=== PATIENT | female | born 1995 | race American Indian/Alaskan Native ===

== ENCOUNTER 2019-09-03 12:13 | Emergency (ER) | payer SELFPAY ==
[2019-09-03] MEDS ORDERED: Ondansetron 4 MG Tab.DIS PO ONE (12:36)
--- NOTE | 2019-09-03 12:41 | EDM.PDOC ---
ED HPI GENERAL MEDICAL PROBLEM - General Chief Complaint: General Stated Complaint: LEFT SIDE OF NECK SWOLLEN Time Seen by Provider: 09/03/19 12:26 Source of Information: Reports: Patient History Limitations: Reports: No Limitations - History of Present Illness INITIAL COMMENTS - FREE TEXT/NARRATIVE: HISTORY AND PHYSICAL: History of present illness: Patient is a 23-year-old female who presents to the emergency room with complaints of an enlarged and tender lymph node on her right neck. She states that she had an immunization on and since has felt mildly ill. She noticed the enlarged lymph node yesterday and states "I keep rubbing it and messing around, its starting to hurt". She states she gets nauseated when she "messes with it". She denies any skin redness, soft tissue swelling or airway involvement. Patient denies any fever, chills, headache, change in vision, syncope or near syncope. Denies any chest pain, back pain, shortness of breath or cough. Denies any GI or symptoms. patient has been eating and drinking appropriately. Review of systems: As per history of present illness and below otherwise all systems reviewed and negative. Past medical history: As per history of present illness and as reviewed below otherwise noncontributory. Surgical history: As per history of present illness and as reviewed below otherwise noncontributory. Social history: See social history for further information Family history: As per history of present illness and as reviewed below otherwise noncontributory. Physical exam: General: Well-developed and well-nourished 23-year-old female. Alert and oriented. Nontoxic-appearing and in no acute distress. HEENT: Atraumatic, normocephalic, pupils equal and reactive bilaterally, negative for conjunctival pallor or scleral icterus, mucous membranes moist, TMs normal bilaterally, throat clear, 1 enlarged lymph node along the right cervical chain (mid neck) boggy, neck supple, trachea midline. No drooling or trismus noted. No meningeal signs. No hot potato voice noted. Lungs: Clear to auscultation, breath sounds equal bilaterally, chest nontender. Heart: S1S2, regular rate and rhythm without overt murmur Abdomen: Soft, nondistended, nontender. Negative for masses or hepatosplenomegaly. Negative for costovertebral tenderness. Skin: Intact, warm, dry. No lesions or rashes noted. Extremities: Atraumatic, moves all extremities per self without difficulty or deficits, negative for cords or calf pain. Neurovascular unremarkable. Neuro: Awake, alert, oriented. Cranial nerves II through XII unremarkable. Cerebellum unremarkable. Motor and sensory unremarkable throughout. Exam nonfocal. Notes: One enlarged lymph node is noted. We discussed the likely alvarez of this being her body responding to illness or her recent immunization; she needs to monitor the site. Follow up with PCP in the next week. Supportive care measures were reviewed and discussed. Voices understanding and is agreeable to plan of care. Denies any further questions or concerns at this time. Diagnostics: None Therapeutics: Zofran Impression: Reactive lymph node Plan: 1. Continue to monitor the site, look for the signs and symptoms that we discussed. If the site does not improve you may need to have the site biopsied. 2. Alternate Tylenol and Ibuprofen for pain management. 3. Increase your oral fluids. Zofran as needed for nausea. 4. Follow up with your primary care provider. Return to the ED as needed and as discussed. Definitive disposition and diagnosis as appropriate pending reevaluation and review of above. right neck Pain Score (Numeric/FACES): 9 - Related Data Allergies Allergy/AdvReac Type Severity Reaction Status Date / Time No Known Allergies Allergy Verified 09/03/19 12:26 Home Meds: Home Meds Ondansetron [Zofran ODT] 4 mg PO Q6H PRN #6 tab.dis 09/03/19 [Rx] cephALEXin [Keflex] 500 mg PO BID 5 Days #10 cap 09/03/19 [Rx] Past Medical History - Past Health History Medical/Surgical History: Denies Medical/Surgical History Respiratory History: Reports: Asthma TOY STUFFER History: Reports: Polycystic Ovaries - Infectious Disease History Infectious Disease History: Reports: Hepatitis C Social & Family History - Family History Family Medical History: Noncontributory - Tobacco Use Smoking Status *Q: Current Every Day Smoker Years of Tobacco use: 3 Packs/Tins Daily: 0.5 - Recreational Drug Use Recreational Drug Use: Yes Drug Use in Last 12 Months: Yes Recreational Drug Type: Reports: Marijuana/Hashish ED ROS GENERAL - Review of Systems Review Of Systems: Comprehensive ROS is negative, except as noted in HPI. ED EXAM, GENERAL - Physical Exam Exam: See Below (See dictation) Course - Vital Signs Last Recorded V/S: Last Vital Signs Temp 97.5 F 09/03/19 13:00 Pulse 101 H 09/03/19 13:00 Resp 15 09/03/19 13:00 BP 137/78 09/03/19 13:00 Pulse Ox 98 09/03/19 13:00 - Orders/Labs/Meds Meds: Medications Discontinued Medications Generic Name Dose Route Start Last Admin Trade Name Freq PRN Reason Stop Dose Admin Ondansetron HCl 4 mg 09/03/19 12:36 09/03/19 12:45 Zofran Odt PO 09/03/19 12:37 4 mg ONETIME ONE Administration Departure - Departure Time of Disposition: 12:41 Disposition: Home, Self-Care 01 Clinical Impression: Lymph nodes enlarged - Discharge Information Prescriptions: cephALEXin [Keflex] 500 mg PO BID 5 Days #10 cap Ondansetron [Zofran ODT] 4 mg PO Q6H PRN #6 tab.dis PRN Reason: Nausea Instructions: Lymphadenopathy Referrals: PCP,None [Primary Care Provider] - Forms: ED Department Discharge Additional Instructions: The following information is given to patients seen in the emergency department who are being discharged to home. This information is to outline your options for follow-up care. We provide all patients seen in our emergency department with a follow-up referral. The need for follow-up, as well as the timing and circumstances, are variable depending upon the specifics of your emergency department visit. If you don't have a primary care physician on staff, we will provide you with a referral. We always advise you to contact your personal physician following an emergency department visit to inform them of the circumstance of the visit and for follow-up with them and/or the need for any referrals to a consulting specialist. The emergency department will also refer you to a specialist when appropriate. This referral assures that you have the opportunity for follow-up care with a specialist. All of these measure are taken in an effort to provide you with optimal care, which includes your follow-up. Under all circumstances we always encourage you to contact your private physician who remains a resource for coordinating your care. When calling for follow-up care, please make the office aware that this follow-up is from your recent emergency room visit. If for any reason you are refused follow-up, please contact the [facility] Emergency Department at and asked to speak to the emergency department charge nurse. [facility] [address] [place] [address] [facility] [address] [place] [id number] 1. Continue to monitor the site, look for the signs and symptoms that we discussed. If the site does not improve you may need to have the site biopsied. 2. Alternate Tylenol and Ibuprofen for pain management. 3. Increase your oral fluids. Zofran as needed for nausea. 4. Follow up with your primary care provider. Return to the ED as needed and as discussed. Sepsis Event Note - Evaluation Sepsis Screening Result: No Definite Risk - Focused Exam Vital Signs: Vital Signs Temp Pulse Resp BP Pulse Ox 09/03/19 13:00 97.5 F 101 H 15 137/78 98 09/03/19 12:24 97.8 F 104 H 18 161/83 H 99 Date Exam was Performed: 09/03/19 Time Exam was Performed: 17:38
== END 2019-09-03 13:00 | disposition home or self-care (01) ==
LOC: MW.ED 12:13
DX: R59.0 Localized enlarged lymph nodes (principal); F17.210 Nicotine dependence, cigarettes, uncomplicated; J45.909 Unspecified asthma, uncomplicated
CPT/HCPCS: 99283; A9270

== ENCOUNTER 2022-02-23 09:48 | Emergency (ER) | payer BC, MEDICAID ==
[2022-02-23 10:45] LABS: CARBON DIOXIDE,CO2 22.9 mmol/L (21.0-32.0); POTASSIUM,K 3.8 mmol/L (3.5-5.1)
[2022-02-23] MEDS ORDERED: Albuterol 8 GM Inhaler INH ONE (11:03)
== END 2022-02-23 11:27 | disposition home or self-care (01) ==
LOC: MW.ED 09:48
DX: J06.9 Acute upper respiratory infection, unspecified (principal); E11.9 Type 2 diabetes mellitus without complications; I10 Essential (primary) hypertension; Z87.891 Personal history of nicotine dependence; Z79.899 Other long term (current) drug therapy; Z79.84 Long term (current) use of oral hypoglycemic drugs; Z20.822 Contact with and (suspected) exposure to COVID-19
CPT/HCPCS: 36415; 80053; 81003; 85025; 87635; 99283; A9270; U0002

== ENCOUNTER 2022-08-20 16:17 | Emergency (ER) | payer MEDICAID ==
[2022-08-20] MEDS ORDERED: Ondansetron 4 MG/2 ML SDV IVPUSH ONE (20:21)
[2022-08-20] MEDS ORDERED: Sodium Chloride 0.9% 1,000 ML IV SCH (20:30)
[2022-08-20 20:49] LABS: CORONAVIRUS COVID-19 NAA NEGATIVE (NEGATIVE); INFLUENZA A NAA NEGATIVE (NEGATIVE); INFLUENZA B NAA NEGATIVE (NEGATIVE); RESPIRATORY SYNCYTIAL VIR NAA NEGATIVE (NEGATIVE)
[2022-08-20 21:02] LABS: CARBON DIOXIDE,CO2 22.7 mmol/L (21.0-32.0); POTASSIUM,K 3.6 mmol/L (3.5-5.1)
[2022-08-20] MEDS ORDERED: Iopamidol 755 MG/ML 500 ML Multipack Bottle IVPUSH STA (22:56)
== END 2022-08-21 | disposition home or self-care (01) ==
LOC: MW.ED 16:17
DX: O99.53 Diseases of the respiratory system complicating the puerperium (principal); J18.9 Pneumonia, unspecified organism; J45.909 Unspecified asthma, uncomplicated; O10.93 Unspecified pre-existing hypertension complicating the puerperium; O24.13 Pre-existing type 2 diabetes mellitus, in the puerperium; R11.2 Nausea with vomiting, unspecified; Z79.84 Long term (current) use of oral hypoglycemic drugs; Z79.899 Other long term (current) drug therapy; Z20.822 Contact with and (suspected) exposure to COVID-19
CPT/HCPCS: 0241U; 36415; 71045; 71275; 80048; 85025; 93005; 96361; 96374; 99284; J2405; J7030; Q9967

== ENCOUNTER 2023-05-12 14:34 | Emergency (ER) | payer BC, MEDICAID ==
[2023-05-12] MEDS ORDERED: Prochlorperazine 10 MG/2 ML SDV IVPUSH STA (15:24)
[2023-05-12] MEDS ORDERED: Sodium Chloride 0.9% 1,000 ML IV STA (15:24)
[2023-05-12] MEDS ORDERED: diphenhydrAMINE 50 MG/ML SDV IVPUSH STA (15:24)
[2023-05-12] MEDS ORDERED: Sodium Chloride 0.9% 2.5 ML Syringe FLUSH PRN (15:24)
[2023-05-12] MEDS ORDERED: Sodium Chloride 0.9% 10 ML Syringe FLUSH PRN (15:24)
[2023-05-12] MEDS ORDERED: Magnesium Sulfate/Water 2 GM in Premix Bag 1 BAG IV STA (15:26)
[2023-05-12 16:22] LABS: APPEARANCE,URINE CLEAR; BILIRUBIN,URINE NEGATIVE (NEGATIVE); COLOR,URINE YELLOW; GLUCOSE,URINE >=1000 mg/dL (NEGATIVE); KETONES,URINE NEGATIVE (NEGATIVE); LEUKOCYTE ESTERASE,URINE NEGATIVE (NEGATIVE); NITRITE,URINE NEGATIVE (NEGATIVE); OCCULT BLOOD,URINE LARGE (NEGATIVE); PROTEIN,URINE NEGATIVE (NEGATIVE); UROBILINOGEN,URINE 0.2 EU/dL (<2.0)
[2023-05-12 16:28] LABS: BASOPHILS ABSOLUTE AUTO 0.08 K/uL (0.00-0.20); EOSINOPHILS ABSOLUTE AUTO 0.21 K/uL (0.00-0.45); EOSINOPHILS PERCENT AUTO 2.7 % (0.0-6.0); HEMATOCRIT 45.4 % (37.0-47.0); HEMOGLOBIN 15.9 g/dL (12.0-16.0); IMMATURE GRAN ABSOLUTE AUTO 0.05 K/uL (0.00-0.05); IMMATURE GRAN PERCENT AUTO 0.7 % (0.0-0.4); LYMPHOCYTES ABSOLUTE AUTO 2.31 K/uL (1.00-4.80); LYMPHOCYTES PERCENT AUTO 30.2 % (24.0-44.0); MEAN CORPUSCULAR HEMOGLOBIN 29.8 pg (28.0-32.0); MEAN PLATELET VOLUME 11.4 fL (9.4-12.3); MONOCYTES ABSOLUTE AUTO 0.54 K/uL (0.00-0.80); NEUTROPHILS ABSOLUTE AUTO 4.47 K/uL (1.80-7.70); NEUTROPHILS PERCENT AUTO 58.4 % (41.0-71.0); PLATELET COUNT,PLT 227 K/uL (150-400); RED BLOOD CELL COUNT 5.34 M/uL (4.10-5.30); WHITE BLOOD CELL COUNT,WBC 7.66 K/uL (3.9-11.3)
[2023-05-12 16:32] LABS: BACTERIA,URINE RARE (NEGATIVE); EPITHELIAL CELLS,URINE MODERATE (NONE-FEW); RBC,URINE 0-1 (0-2/HPF)
[2023-05-12 16:58] LABS: A/G RATIO 0.8 (0.9-1.6); ALBUMIN 3.7 g/dL (3.4-5.0); BILIRUBIN TOTAL 0.5 mg/dL (0.2-1.0); CALCIUM 9.4 mg/dL (8.5-10.1); CREATININE 0.9 mg/dL (0.6-1.0); EST CRCL DRUG DOSING (CG) 79.04 mL/min; POTASSIUM,K 3.7 mmol/L (3.5-5.1); PROTEIN TOTAL,TP 8.6 g/dL (6.4-8.2)
== END 2023-05-12 18:07 | disposition home or self-care (01) ==
LOC: MW.ED 14:34
DX: G43.909 Migraine, unspecified, not intractable, without status migrainosus (principal); I10 Essential (primary) hypertension; E11.9 Type 2 diabetes mellitus without complications
CPT/HCPCS: 36415; 70450; 80053; 81001; 81025; 83690; 83735; 85025; 96361; 96365; 96375; 99284; J0780; J1200; J3475; J3490; J7030

== ENCOUNTER 2023-07-23 11:26 | Emergency (ER) | payer SELFPAY ==
[2023-07-23] MEDS: Sodium Chloride 0.9% 1,000 ML IV STA ×3 (13:07→14:07)
[2023-07-23] MEDS: Ondansetron 4 MG/2 ML SDV IVPUSH STA (13:07)
[2023-07-23] MEDS: Ketorolac 30 MG/ML SDV IVPUSH STA (13:07)
[2023-07-23 13:20] LABS: HEMOGLOBIN 15.5 g/dL (12.0-16.0); MEAN CORPUSCULAR HEMOGLOBIN 29.6 pg (28.0-32.0); MEAN CORPUSCULAR HGB CONC 35.2 g/dL (32.0-36.0); MEAN CORPUSCULAR VOLUME 84.1 fL (83.0-99.0); MEAN PLATELET VOLUME 11.2 fL (9.4-12.3); PLATELET COUNT,PLT 176 K/uL (150-400); RED BLOOD CELL COUNT 5.23 M/uL (4.10-5.30); WHITE BLOOD CELL COUNT,WBC 23.33 K/uL (3.9-11.3)
[2023-07-23 13:47] LABS: COLOR,URINE YELLOW; GLUCOSE,URINE >=1000 mg/dL (NEGATIVE); KETONES,URINE >=80 mg/dL (NEGATIVE); LEUKOCYTE ESTERASE,URINE NEGATIVE (NEGATIVE); NITRITE,URINE NEGATIVE (NEGATIVE); OCCULT BLOOD,URINE MODERATE (NEGATIVE); PROTEIN,URINE 100 mg/dL (NEGATIVE); UROBILINOGEN,URINE 0.2 EU/dL (<2.0)
[2023-07-23 13:49] LABS: A/G RATIO 0.6 (0.9-1.6); ALBUMIN 3.3 g/dL (3.4-5.0); BILIRUBIN TOTAL 1.6 mg/dL (0.2-1.0); CALCIUM 9.4 mg/dL (8.5-10.1); CARBON DIOXIDE,CO2 20.9 mmol/L (21.0-32.0); CREATININE 0.9 mg/dL (0.6-1.0); EST CRCL DRUG DOSING (CG) 82.51 mL/min; POTASSIUM,K 3.9 mmol/L (3.5-5.1); PROTEIN TOTAL,TP 8.8 g/dL (6.4-8.2)
[2023-07-23 13:51] LABS: BILIRUBIN,URINE SMALL (NEGATIVE)
[2023-07-23 14:06] LABS: HCG QUALITATIVE,SERUM NEGATIVE (NEG)
[2023-07-23] MEDS: Piperacillin/Tazobactam 3.375 GM in Sodium Chloride 0.9% 100 ML IV STA (14:07)
[2023-07-23 14:18] LABS: BASE EXCESS VENOUS -4.5 (-2.0-3.0); PH,VENOUS 7.35 (7.31-7.41)
[2023-07-23 14:26] LABS: BAND ABSOLUTE MAN 0.23; BAND PERCENT MAN 1 %; LYMPHOCYTES PERCENT MAN 9 % (24-44); MONOCYTES ABSOLUTE MAN 1.17 K/uL (0.00-0.80); MONOCYTES PERCENT MAN 5 % (0-8); SEG NEUTROPHILS ABSOLUTE MAN 19.83 K/uL (1.80-7.70); SEG NEUTROPHILS PERCENT MAN 85 % (41-71)
[2023-07-23 14:30] LABS: APPEARANCE,URINE HAZY
[2023-07-23 14:31] LABS: BACTERIA,URINE FEW (NEGATIVE); EPITHELIAL CELLS,URINE OCCASIONAL (NONE-FEW); WBC,URINE 0-5 (0-5/HPF); YEAST,URINE RARE
[2023-07-23 15:00] LABS: LACTIC ACID 2.2 mmol/L (0.4-2.0)
[2023-07-23 15:13] LABS: HEMOGLOBIN A1C 11.3 %
[2023-07-23] MEDS: Iopamidol 755 MG/ML 500 ML Multipack Bottle IVPUSH STA (15:20)
[2023-07-23] MEDS ORDERED: 50% Dextrose in Water 50 ML Syringe IVPUSH PRN (15:30)
[2023-07-23] MEDS ORDERED: Glucagon,Human Recombinant 1 MG Vial IM PRN (15:30)
[2023-07-23] MEDS: Insulin Regular, Human 100 Units/ML 10 ML Vial IVPUSH STA (15:41)
[2023-07-23 17:41] LABS: BASE EXCESS VENOUS -1.9 (-2.0-3.0); BICARBONATE,VENOUS 24 mEq/L (23-28); PCO2 VENOUS 43 mmHG (41-51); PH,VENOUS 7.35 (7.31-7.41)
[2023-07-23 17:44] LABS: CALCIUM 7.7 mg/dL (8.5-10.1); CARBON DIOXIDE,CO2 20.1 mmol/L (21.0-32.0); CREATININE 0.8 mg/dL (0.6-1.0); EST CRCL DRUG DOSING (CG) 92.83 mL/min; POTASSIUM,K 3.7 mmol/L (3.5-5.1)
[2023-07-23 18:16] LABS: PO2 VENOUS < 30 mmHG
[2023-07-23] MEDS: Dexamethasone 10 MG/ML SDV PO STA (19:49)
[2023-07-23] MEDS: cefTRIAXone 2 GM in Sodium Chloride 0.9% 50 ML IV STA (19:49)
[2023-07-23 21:40] LABS: C. TRACHOMATIS BY PCR NOT DETECTED; N. GONORRHOEAE BY PCR NOT DETECTED
== END 2023-07-23 20:20 | disposition home or self-care (01) ==
LOC: MW.ED 11:26
DX: J02.9 Acute pharyngitis, unspecified (principal); R79.89 Other specified abnormal findings of blood chemistry; I10 Essential (primary) hypertension; J45.909 Unspecified asthma, uncomplicated; E11.9 Type 2 diabetes mellitus without complications
CPT/HCPCS: 36415; 71046; 74177; 80048; 80053; 81001; 82009; 82803; 82947; 83036; 83605; 83690; 83735; 84703; 85025; 86308; 87040; 87070; 87491; 87591; 87651; 96361; 96365; 96367; 96375; 99284; J0696; J1885; J2405; J2543; J3490; J7030; J8540; Q9967; J1815-GY

== ENCOUNTER 2023-12-27 10:35 | Emergency (ER) | payer BC, MEDICAID ==
[2023-12-27 11:08] LABS: BASE EXCESS VENOUS -0.3 (-2.0-3.0); PH,VENOUS 7.42 (7.31-7.41)
[2023-12-27 11:10] LABS: HEMATOCRIT 45.6 % (37.0-47.0); HEMOGLOBIN 15.6 g/dL (12.0-16.0); MEAN CORPUSCULAR HEMOGLOBIN 29.6 pg (28.0-32.0); MEAN CORPUSCULAR HGB CONC 34.2 g/dL (32.0-36.0); MEAN CORPUSCULAR VOLUME 86.5 fL (83.0-99.0); MEAN PLATELET VOLUME 10.9 fL (9.4-12.3); PLATELET COUNT,PLT 203 K/uL (150-400); RED BLOOD CELL COUNT 5.27 M/uL (4.10-5.30); WHITE BLOOD CELL COUNT,WBC 8.85 K/uL (3.9-11.3)
[2023-12-27] MEDS: diphenhydrAMINE 50 MG/ML SDV IVPUSH ONE (11:10)
[2023-12-27] MEDS: Sodium Chloride 0.9% 1,000 ML IV ONE ×2 (11:10→12:42)
[2023-12-27] MEDS: Metoclopramide 10 MG/2 ML SDV IVPUSH ONE (11:10)
[2023-12-27 11:24] LABS: A/G RATIO 0.8 (0.9-1.6); ALBUMIN 3.5 g/dL (3.4-5.0); BILIRUBIN TOTAL 0.6 mg/dL (0.2-1.0); CALCIUM 8.8 mg/dL (8.5-10.1); CARBON DIOXIDE,CO2 24.1 mmol/L (21.0-32.0); CREATININE 0.9 mg/dL (0.6-1.0); EST CRCL DRUG DOSING (CG) 78.36 mL/min; MAGNESIUM 1.7 mg/dL (1.8-2.4); PROTEIN TOTAL,TP 8.1 g/dL (6.4-8.2)
[2023-12-27 11:43] LABS: CORONAVIRUS COVID-19 NAA NEGATIVE (NEGATIVE); INFLUENZA A NAA NEGATIVE (NEGATIVE); INFLUENZA B NAA NEGATIVE (NEGATIVE); RESPIRATORY SYNCYTIAL VIR NAA NEGATIVE (NEGATIVE)
[2023-12-27 11:45] LABS: BAND ABSOLUTE MAN 0.09; BAND PERCENT MAN 1 %; BASOPHILS ABSOLUTE MAN 0.09 K/uL (0.00-0.20); BASOPHILS PERCENT MAN 1 % (0-1); LYMPHOCYTES PERCENT MAN 35 % (24-44); METAMYELOCYTE ABSOLUTE MAN 0.09; METAMYELOCYTE PERCENT MAN 1 %; MONOCYTES PERCENT MAN 9 % (0-8); REACTIVE LYMPHOCYTES MODERATE; SEG NEUTROPHILS ABSOLUTE MAN 4.69 K/uL (1.80-7.70); SEG NEUTROPHILS PERCENT MAN 53 % (41-71)
[2023-12-27] MEDS: Ketorolac 30 MG/ML SDV IVPUSH ONE (11:46)
[2023-12-27] MEDS: Magnesium Oxide 400 MG Tab PO ONE (12:05)
[2023-12-27 12:54] LABS: APPEARANCE,URINE CLEAR; BILIRUBIN,URINE NEGATIVE (NEGATIVE); COLOR,URINE YELLOW; GLUCOSE,URINE >=1000 mg/dL (NEGATIVE); KETONES,URINE TRACE mg/dL (NEGATIVE); LEUKOCYTE ESTERASE,URINE NEGATIVE (NEGATIVE); NITRITE,URINE NEGATIVE (NEGATIVE); OCCULT BLOOD,URINE SMALL (NEGATIVE); PROTEIN,URINE 30 mg/dL (NEGATIVE); UROBILINOGEN,URINE 0.2 EU/dL (<2.0)
[2023-12-27 13:08] LABS: BACTERIA,URINE FEW (NEGATIVE); EPITHELIAL CELLS,URINE MODERATE (NONE-FEW)
== END 2023-12-27 14:06 | disposition home or self-care (01) ==
LOC: MW.ED 10:35
DX: G44.009 Cluster headache syndrome, unspecified, not intractable (principal); I10 Essential (primary) hypertension; E11.9 Type 2 diabetes mellitus without complications; Z75.8 Other problems related to medical facilities and other health care
CPT/HCPCS: 0241U; 36415; 70450; 80053; 81001; 82803; 82947; 83735; 84703; 85025; 87086; 96361; 96374; 96375; 99284; A9270; J1200; J2765; J7030